=== PATIENT | female | born 1950 | race Caucasian/White ===

== ENCOUNTER 2024-11-17 08:11 | Outpatient (CLI) | payer MEDICARE, SELFPAY ==
--- NOTE | 2024-11-17 | EST_ITS ---
Patient Info Name: Jalyn Vee Age: 74 years : 1950 Gender: Female Ht: 64 in Wt: 125 lbs BSA: 1.60 m2 HR: 58 bpm BP: 119 / 62 mmHg Exam Date: 11/17/2024 8:37 AM Patient Status: O Admit Date: 11/17/2024 Exam Type: CA stress philip w NM A regadenoson stress test was performed. Staff Referring Physician: Daphne Molina Attending Provider: Daphne Molina Exercise Technologist: Marla Last Exercise Physician: Israel Umanzor DO Summary 1. 1. Negative lexiscan stress test for ischemic ST changes by ECG criteria. 2. 2. Stable hemodynamics throughout the test. 3. 3. Nuclear scan to follow and will be reported separately. Please correlate with it. 4. 4. Patient informed of the above results. Protocol: Lexiscan Stress ECG Details Stage: REST Duration (min): 2 min : 7 sec HR (bpm): 58 SBP (mmHg): 119 DBP (mmHg): 62 Stage: REST Duration (min): 5 min : 56 sec HR (bpm): 61 SBP (mmHg): 119 DBP (mmHg): 62 Stage: STAGE 1 Duration (min): 0 min : 59 sec HR (bpm): 67 SBP (mmHg): 108 DBP (mmHg): 66 Stage: RECOVERY Duration (min): 1 min : 0 sec HR (bpm): 69 SBP (mmHg): 108 DBP (mmHg): 66 Stage: RECOVERY Duration (min): 2 min : 0 sec HR (bpm): 66 SBP (mmHg): 108 DBP (mmHg): 66 Stage: RECOVERY Duration (min): 3 min : 0 sec HR (bpm): 64 SBP (mmHg): 119 DBP (mmHg): 61 Stage: RECOVERY Duration (min): 3 min : 22 sec HR (bpm): 66 SBP (mmHg): 119 DBP (mmHg): 61 Rest HR: 61 bpm Peak HR: 70 bpm Rest Sys BP: 119 mmHg Peak Sys BP: 119 mmHg Max Pred HR: 146 bpm % Max Pred HR: 48 % Target HR: 124 bpm Max RPP: 8,330 bpm*mmHg Termination Reason: Completed protocol Cardiac Symptoms: Shortness of breath Total Time: 1 min : 0 sec Rest Martino BP: 62 mmHg Peak Martino BP: 61 mmHg Total Dose: 0.4 mg Resting ECG Sinus rhythm. Stress ECG No ST changes. Arrhythmias None. Report Signatures
--- NOTE | ~2024-11-17 | NM_ITS ---
EXAMINATION: NM philip stress w perfusion DATE: 11/17/2024 10:31 CDT INDICATION: Coronary artery disease TECHNIQUE: Rest images were obtained following intravenous administration of 10 mCi Tc99m tetrofosmin (Myoview). The patient was infused intravenously with Lexiscan (regadenoson). Then, 32.5 mCi Tc99m t etrofosmin (Myoview) was administered intravenously, and stress images were obtained. Data was recons tructed into short axis and horizontal and vertical long axis SPECT images. Gated SPECT images were a lso obtained. COMPARISON: None. FINDINGS: There is no definite reversible or fixed perfusion abnormality to suggest ischemia or infar ction. There is no segmental wall motion abnormality. Left ventricular ejection fraction measures 7 1%. IMPRESSION: 1. No definite ischemia or infarct. 2. Normal left ventricular ejection fraction measuring 71%. Reviewed, dictated and finalized at location A.
--- OUTSIDE RECORDS SUMMARY | 2024-11-17 08:19 | XMS_ITS | Clinical Summary ---
Author Organization [address] Address [address] [place] [address] [address] [place] [address] Care Team Providers Care Campaign Consultant Name Role Phone RoxyBobby rosekeri STODDARD Primary Care Pr ovider Allergies No known active allergies Medications fluticasone propionate (Flonase Allergy Relief) 50 mcg/actuation nasal spray Active atorvastatin (LIPITOR) 40 mg tablet TAKE 1 TABLET BY MOUTH AT NIGHT FOR CHOLESTEROL Active lisinopriL (PRINIVIL,ZESTR IL) 10 mg tablet Take 1 tablet every day by oral route. 5 Active metoprolol XL (TOPROL-XL) 25 mg extended release tablet Take 1 tablet (25 mg total) by mouth daily Active sertraline (ZOLOFT) 100 mg tablet TAKE 2 TABLETS BY MOUTH EVERY EVENING NEEDED FOR HAPPY PILL Active ARIPiprazole (ABILIFY) 2 mg tablet Take 1 tablet every day by oral route. Active omeprazole (PriLOSEC) 20 mg capsule Take 1 capsule twice a day by oral route. Active Active Problems Problem Noted Date Diagnosed Date Vitamin D deficiency 08/25/2024 Mas's esophagus 05/17/2024 Benign essential hypertension 05/17/2024 Gastroesophageal reflux disease without esophagi tis 05/17/2024 Hyperlipidemia 05/17/2024 Mild recurrent major depression 05/17/2024 Osteoporosis 05/17/2024 Smoker 05/17/2024 Encounters Date Type Department Care Team Description 10/26/2024 Telephone [facility] - [address] [place] [phone] Zayra Townsend MA 10/01/2024 Results Follow-Up [facility] [address] [phone] Kennedi Rey MD Basic metabolic panel, eGFR 09/28/2024 12:45 PM CDT Lab [address] [phone] Age-related osteoporosis without current pathological fracture; Vitamin D deficiency 09/08/2024 2:30 PM CDT Clinical Support [facility] [address] [place] [phone] Mas's esophagus without dysplasia (Primary Dx); Age-related osteoporosis without current pathological fracture 08/30/2024 Results Follow-Up [facility] [address] [phone] Kennedi Rey MD Vitamin D 25 hydroxy, Comprehensive metabolic panel, eGFR 08/26/2024 Telephone [facility] [address] [place] [phone] Bailey Eugene, WHITNEY 08/25/2024 3:25 PM CDT Lab [address] [phone] Vitamin D deficiency 08/25/2024 2:30 PM CDT Office Visit [facility] [address] [phone] Kennedi Rey MD Age-related osteoporosis without current pathological fracture (Primary Dx); Vitamin D deficiency 08/25/2024 Orders Only [facility] [address] [phone] ProviderBubba MD from Last 3 Months Social History Tobacco Use Types Packs/Day Years Used Date Smoking Tobacco: Every Day Cigarettes Tobacco Cessation:Ready to Q uit: Not Asked; Counseling Given: Not Answered PHQ-2 Answer Date Recorded PHQ-2 Total Score (If total score is 3 or more points, staff should administer the PHQ-9) 0 08/25/2024 Personal Safety Answer Date Recorded Have you ever been in or are you currently in a harmful physical or emotional relationship or is someone making you feel afraid or unsafe? 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 Gender Identity Not on file Sexual Orientation Not on file Obstetrics History Last Filed Vital Signs Vital Sign Reading Time Taken Comments Blood Pressure 117/77 09/08/2024 2:29 PM CDT Pulse 82 09/08/2024 2:29 PM CDT Temperature 36.4 C (97.5 F) 09/08/2024 2:29 PM CDT Respiratory Rate 18 09/08/2024 2:29 PM CDT Oxygen Saturation 98% 09/08/2024 2:29 PM CDT Inhaled Oxygen Concentration - - Weight 51.4 kg (113 lb 4.8 oz) 08/25/2024 2:24 P M CDT Height 162.6 cm (5' 4) 08/25/2024 2:24 PM CDT Body Mass Index 19.45 08/25/2024 2:24 PM CDT Plan of Treatment Health Maintenance Due Date Last Done Comments Breast Cancer Screening-Mammogram 1950 Colon Cancer Screening-Colonoscopy 1950 Hepatitis C Screening 1950 DTaP/Tdap/Td Vaccine (1 - Tdap) 1961 Hepatitis B Screening 1968 Pneumococcal vaccine 65+ (1 of 2 - PCV) 1969 Zoster Vaccine (1 of 2) 2000 Well Visit 65+ 08/29/2015 Influenza Vaccine (#1) 2024 Depression Screening 08/25/2025 08/25/2024 Fall Risk Assessment 09/08/2025 09/08/2024, 08/26/19 25 Osteoporosis Screening-Bone Density Scan 08/25/2026 08/25/2024 Procedures Procedure Name Priority Date/Time Associated Diagnosis Comments EGFR Routine 09/28/2024 12:55 PM CDT Age-related osteoporosis without current pathological fracture Vitamin D deficiency BASIC METABOLIC PANEL Routine 09/28/2024 12:55 PM CDT Age-related osteoporosis without current pathological fracture Vitamin D deficiency EGFR Routine 08/25/2024 3:45 PM CDT Vitamin D deficiency COMPREHENSIVE METABOLIC PANEL Routine 08/25/2024 3:45 PM CDT Vitamin D deficiency VITAMIN D 25 HYDROXY Routine 08/25/2024 3:45 PM CDT Vitamin D deficiency BONE MINERAL DENSITY Schedule Routine, Read Routine (OP Routine) 08/25/2024 3:36 PM CDT from Last 3 Months Results * (ABNORMAL) eGFR (09/28/2024 12:55 PM CDT) eGFR 57(L) >=60 mL/min/1. 73 m2 Comment: Interpretive Data Reference Interval Normal >/= 90 mL/min/1.73m2 Mildly decreased* 60 - 89 mL/min/1.73m2 Mildly to moderately decreased 45 - 59 mL/min/1.73m2 Moderately to severely decreased 30 - 44 mL/min/1.73m2 Severely decreased 15 - 29 mL/min/1.73m2 Kidney Failure < 15 mL/min/1.73m2 *Relative to young adult level Estimated glomerular filtration rate is determined by the 2020 CKD-EPI equation recommended by the National Kidney Foundation (A Unifying Approach to GFR Estimation: Recommendations of the NKF-ASK Task Force on Reassessing the Inclusion of Race in Diagnosing Kidney Disease, JASN 2020). The CKD-EPI equation should not be used for patients with unstable renal function and has not been validated in children and those over 70. Current interpretive data was last reviewed 2021. Blood 09/28/2024 12:5 5 PM CDT 09/28/2024 5:28 PM CDT us Kennedi Rey MD LAB BLOOD ORDERABLES Final Resul t [facility] [address] [place] [address] * (ABNORMAL) Basic metabolic panel (09/28/2024 12:55 PM CDT) Sodium 135 135 - 145 mmol/L Potassium, pl 5.2(H) 3.3 - 4.9 mmol/L [facility] Chloride 103 97 - 110 mmol/L [facility] CO2 20(L) 22 - 32 mmol/L [facility] Anion gap 12 2 - 15 mmol/L [facility] BUN 22 6 - 25 mg/dL [facility] Creatinine 1.03 0.60 - 1.10 mg/dL [facility] Glucose 88 70 - 199 mg/dL [facility] Comment: Interpretive Data Fasting glucose >/= 126 mg/dl is diagnostic for diabetes. Fasting is defined as no caloric intake for at least 8 hours. Fasting glucose between 100 mg/dl to 125 mg/dl is diagnostic of prediabetes. In a patient with classic symptoms of hyperglycemia or hyperglycemic crisis, a random glucose >/= 200 mg/dl is diagnostic for diabetes. In the absence of unequivocal hyperglycemia, results should be confirmed by repeat testing. The classification and Diagnosis of Diabetes Diabetes Care 2021; 46: S19-S40. Current interpretive data was last revised 2022. Calcium 9.2 8.5 - 10.3 mg/dL [facility] Blood 09/28/2024 12:5 5 PM CDT 09/28/2024 4:52 PM CDT us Kennedi Rey MD LAB BLOOD ORDERABLES Final Resul t [facility]IRE [address] [address] [facility] [place] [address] * (ABNORMAL) eGFR (08/25/2024 3:45 PM CDT) eGFR 54(L) >=60 mL/min/1. 73 m2 Comment: Interpretive Data Reference Interval Normal >/= 90 mL/min/1.73m2 Mildly decreased* 60 - 89 mL/min/1.73m2 Mildly to moderately decreased 45 - 59 mL/min/1.73m2 Moderately to severely decreased 30 - 44 mL/min/1.73m2 Severely decreased 15 - 29 mL/min/1.73m2 Kidney Failure < 15 mL/min/1.73m2 *Relative to young adult level Estimated glomerular filtration rate is determined by the 2020 CKD-EPI equation recommended by the National Kidney Foundation (A Unifying Approach to GFR Estimation: Recommendations of the NKF-ASK Task Force on Reassessing the Inclusion of Race in Diagnosing Kidney Disease, JASN 2020). The CKD-EPI equation should not be used for patients with unstable renal function and has not been validated in children and those over 70. Current interpretive data was last reviewed 2021. Blood 08/25/2024 3:45 PM CDT 08/25/2024 8:06 PM CDT Kennedi Rey MD LAB BLOOD ORDERABLES Final Resul t Performing Organization Address City/[facility] Co de Phone Number DESIRE [phone] [place] [address] * Vitamin D 25 hydroxy (08/25/2024 3:45 PM CDT) Vitamin D 25-OH 38 30 - 80 ng/mL Blood 08/25/2024 3:45 PM CDT 08/25/2024 7:24 PM CDT Kennedi Rey MD LAB BLOOD ORDERABLES Final Resul t Performing Organization Address [facility] de Phone Number DESIRE [phone] [address] [place] [address] * (ABNORMAL) Comprehensive metabolic panel (08/25/2024 3:45 PM CDT) Sodium 133(L) 135 - 145 mmol/L Potassium, pl 5.4(H) 3.3 - 4.9 mmol/L [facility] Chloride 100 97 - 110 mmol/L [facility] CO2 24 22 - 32 mmol/L [facility] Anion gap 9 2 - 15 mmol/L [facility] BUN 15 6 - 25 mg/dL [facility] Creatinine 1.08 0.60 - 1.10 mg/dL [facility] Glucose 97 70 - 199 mg/dL [facility] Comment: Interpretive Data Fasting glucose >/= 126 mg/dl is diagnostic for diabetes. Fasting is defined as no caloric intake for at least 8 hours. Fasting glucose between 100 mg/dl to 125 mg/dl is diagnostic of prediabetes. In a patient with classic symptoms of hyperglycemia or hyperglycemic crisis, a random glucose >/= 200 mg/dl is diagnostic for diabetes. In the absence of unequivocal hyperglycemia, results should be confirmed by repeat testing. The classification and Diagnosis of Diabetes Diabetes Care 202; 46: S19-S40. Current interpretive data was last revised 2022. Calcium 9.1 8.5 - 10.3 mg/dL [facility] Bilirubin, total <0.2 0.1 - 1.2 mg/dL [facility] Protein, pl 6.7 6.5 - 8.5 g/dL [facility] Albumin 4.1 3.5 - 5.0 g/dL [facility] Alk phos 87 40 - 130 Units/L [facility] ALT 11 7 - 45 Units/L [facility] AST 21 10 - 45 Units/L [facility] Blood 08/25/2024 3:45 PM CDT 08/25/2024 7:24 PM CDT Kennedi Rey MD LAB BLOOD ORDERABLES Final Resul t [facility]IRE [address] [address] [facility] [place] [address] * BONE MINERAL DENSITY (08/25/2024 3:36 PM CDT) Anatomical Region Laterality Modality Radiographic Danyell ging Historical Provider IMG DXA PROCEDURES Final Result from Last 3 Months Insurance MEDICARE [facility] Care Teams Campaign Consultant Relationship Specialty Start Date End Date Daphne Molina PA [address] [place] [address] PCP - General Physician Neuro Ophthalmologist 08/16/24
== END 2024-11-17 08:12 | disposition home or self-care (01) ==
PROVIDERS: PCP Physician Assistant; Visit Provider Physician Assistant
DX: I25.10 Atherosclerotic heart disease of native coronary artery without angina pectoris (principal)
CPT/HCPCS: 78452; 93017; A9502; J2785